=== PATIENT | male | born 1950 | race Caucasian/White ===

== ENCOUNTER 2017-01-02 14:29 | Emergency (ER) | payer OTHER, MEDICAID ==
[~2017-01-02] VITALS: Ht 180.3 cm; Wt 102.1 kg
[2017-01-02 14:57] VITALS: BP_SYST 101
[2017-01-02] MEDS ORDERED: LIDOCAINE/EPI 1% 1:100000 20 ML VIAL IJ ONE (15:15)
--- NOTE | 2017-01-02 15:30 | NUR ---
pt. placed in bed 1, assumed pt. care
--- NOTE | 2017-01-02 15:40 | NUR ---
PT. TO ER AAOx4 FOR LACERATION OF LEFT HAND STATES THAT HE ACCIDENTLY RUBBED HIS HAND AGAINST NAIL ON WALL, NO BLEEDING AT SITE AT THIS TIME, DENIES DIZZINESS, STATES PAIN AT SITE 2/10
[2017-01-02] MEDS ORDERED: BACITRACIN 1 GM OINT TP ONE (16:00)
--- NOTE | 2017-01-02 16:00 | NUR ---
dr. godwin at bedside examining the pt.
--- NOTE | 2017-01-02 16:27 | NUR ---
dr. godwin at bedside for suture placement
--- NOTE | 2017-01-02 16:33 | NUR ---
ELYSSA AT BEDSIDE FOR DRESSING PLACEMENT
[2017-01-02 16:37] VITALS: BP_SYST 104
--- NOTE | 2017-01-02 16:37 | NUR ---
Patient given written and verbal discharge instructions and verbalizes understanding. ER MD discussed with patient the results and treatment provided. Patient in stable condition. ID arm band removed. NO RX given. Patient educated on pain management and to follow up with PMD. Pain Scale 0/10. Opportunity for questions provided and answered.
== END 2017-01-02 16:37 | disposition home or self-care (01) ==
LOC: SED 14:29
DX: S61.412A Laceration without foreign body of left hand, initial encounter (principal); E11.9 Type 2 diabetes mellitus without complications; I10 Essential (primary) hypertension; W22.8XXA Striking against or struck by other objects, initial encounter; Y93.89 Activity, other specified; Y92.89 Other specified places as the place of occurrence of the external cause; Y99.8 Other external cause status
CPT/HCPCS: 99283